=== PATIENT | female | born 1955 | race Caucasian/White ===

== ENCOUNTER 2018-06-30 07:10 | Day surgery (SDC) | payer BC ==
[2018-06-30] MEDS ORDERED: FENTAnyl 50 MCG/ML VIAL (09:43)
[2018-06-30] MEDS ORDERED: MIDAZOLAM 1 MG/ML 2 ML INJ (09:43)
== END 2018-06-30 12:04 | disposition home or self-care (01) ==
LOC: GIL 07:10
DX: Z12.11 Encounter for screening for malignant neoplasm of colon (principal); K29.60 Other gastritis without bleeding; E11.9 Type 2 diabetes mellitus without complications
CPT/HCPCS: 43239; 82962; 88305